=== PATIENT | female | born 1990 ===

== ENCOUNTER 2022-10-22 11:09 | Inpatient (IN) | payer OTHER ==
[~2022-10-22] VITALS: Ht 157.5 cm; Wt 3.2 kg
[2022-10-31] MEDS ORDERED: PRENATAL TABLE1 EAC1 PO (07:02)
[2022-11-01] MEDS ORDERED: GABAPENTIN300 M2 (11:16)
== END 2022-11-02 14:54 | disposition home or self-care (01) | DRG 788 ==
LOC: LDR 10-31 06:52 → O/R 10-31 06:52 → OB/GYN 10-31 06:52 → LDR 10-31 08:44 → O/R 10-31 16:54 → OB/GYN 10-31 19:06
PROVIDERS: ADMIT Obstetrics & Gynecology Gynecology; ATTEND Obstetrics & Gynecology Gynecology
PROC: 4A1HXCZ Monitoring of Products of Conception, Cardiac Rate, External Approach (ICD-10-PCS; 2022-10-31)
PROC: 10D00Z1 Extraction of Products of Conception, Low, Open Approach (ICD-10-PCS; principal; 2022-10-31 17:30)
DX: O62.0 Primary inadequate contractions (principal); Z3A.39 39 weeks gestation of pregnancy; Z37.0 Single live birth; Z20.822 Contact with and (suspected) exposure to COVID-19